=== PATIENT | male | born 1930 | race Caucasian/White ===

== ENCOUNTER 2016-08-25 14:44 | Emergency (ER) | payer OTHER, MEDICARE ==
[~2016-08-25] VITALS: Ht 182.8 cm; Wt 88.5 kg
[~2016-08-25 14:44] MED LIST: APRESOLINE25 MG PO; ASPI-COR81 M1 PO; DEBROX 15 ML15 M1 OT; FINASTERIDE5 MG PO; FOSINOPRIL SODI20 MG PO; FOSINOPRIL40 MG PO; HYDRALAZINE HCL25 MG PO; HYDROCHLOROTH12.5 MG PO; KETOCONAZOLE 1120 M1 TP; LANTUS100 U/ML SC; LEVOTHYROXINE0.05 MG PO; LOPRESSOR50 MG PO; METFORMIN500 MG; METOPROLOL SR50 MG PO; MICONAZOLE2% VG; MULTIVITAMIN1 CTB PO; NOVOLOG 701 UNIT/0.0; PEN-VEE K500 MG PO; TAMSULOSIN HYD0.4 MG PO; TYLENOL WITH CO1 TA1 PO; VITAMIN B121000 MC1 PO; VITAMIN B12500 MCG PO; VITAMIN C1000 M4 PO; VITAMIN C2000 MG PO; VITAMIN D1000 IU PO; VITAMIN D25000 IU PO; VITAMIN D32000 UNIT PO; ZOCOR20 MG PO; [UNRECOGNIZED DRUG - REMARK] OP
[2016-08-25 15:54] LABS: BASO % 0.3 % (0.0-1.0); EOS # 0.1 10*3/uL (0.0-0.4); HEMATOCRIT 36.9 % (42.0-52.0); HEMOGLOBIN 12.7 g/dl (14.0-18.0); LYMPH # 1.3 10*3/uL (1.3-4.4); LYMPH % 21.4 % (27.0-41.0); MEAN CELL VOLUME 94.6 fl (80.0-94.0); MEAN CORPUSCULAR HGB 32.6 pg (27.0-31.0); MEAN CORPUSCULAR HGB CONC 34.4 g/dl (33.0-37.0); MEAN PLATELET VOLUME 9.6 fl (9.6-12.3); MONO # 0.4 10*3/uL (0.1-1.0); MONO % 7.5 % (3.0-9.0); NEUT # 4.1 10*3/uL (2.3-7.9); NEUT % 69.6 % (47.0-73.0); PLATELET COUNT AUTOMATED 147 10*3/uL (130-400); RED CELL DISTRI WIDTH 12.4 % (0-14.5); WHITE BLOOD COUNT 5.9 10*3/uL (4.8-10.8)
[2016-08-25 16:06] LABS: BUN 15 mg/dl (7-24); CARBON DIOXIDE 30 mmol/L (21-32); CHLORIDE 100 mmol/L (98-107); EST GLOM FILT AFRICAN AMERICAN > 60 ml/min; GLUCOSE 178 mg/dL (65-99); POTASSIUM 4.4 mmol/L (3.5-5.1); SODIUM 137 mmol/L (136-145)
[2016-08-25 17:16] LABS: URINE AMPHETAMINES < 1000 (1000ng/ml); URINE BARBITURATES < 200 (200ng/ml); URINE COCAINE < 300 (300ng/ml)
[2016-08-25 17:21] LABS: BILIRUBIN NEGATIVE (NEGATIVE); BLOOD NEGATIVE (NEGATIVE); CLARITY CLEAR (CLEAR); COLOR YELLOW (YELLOW); GLUCOSE NEGATIVE (NEGATIVE); KETONE NEGATIVE (NEGATIVE); LEUKO ESTERASE NEGATIVE (NEGATIVE); NITRITE NEGATIVE (NEGATIVE); PROTEIN NEGATIVE (NEGATIVE); UROBILINOGEN 0.2 E.U./dl (0.2-1.0)
[2016-08-25 17:28] LABS: RBC 0-2 rbc/hpf (0-2); URINE REFLEX COMMENT NO (NO); WBC 0-2 wbc/hpf (0-5)
[2016-10-09] MEDS ORDERED: DONEPEZIL HYDRO10 M1 PO (14:37)
[2016-10-09] MEDS ORDERED: XALATAN 0.005%2.5 ML OU (14:38)
[2016-10-09] MEDS ORDERED: BUSPIRONE10 MG PO (14:38)
[2016-10-09] MEDS ORDERED: REFRESH 1 ML1 ML OU (18:25)
[2016-10-10] MEDS ORDERED: INVEGA3 MG PO (06:44)
== END 2016-08-25 18:06 | disposition home or self-care (01) ==
LOC: ED 14:44
PROVIDERS: Emergency Medicine
DX: R44.3 Hallucinations, unspecified (principal); I25.10 Atherosclerotic heart disease of native coronary artery without angina pectoris; E11.9 Type 2 diabetes mellitus without complications; I10 Essential (primary) hypertension; E03.9 Hypothyroidism, unspecified; E78.00 Pure hypercholesterolemia, unspecified; Z79.82 Long term (current) use of aspirin; Z79.4 Long term (current) use of insulin; Z90.49 Acquired absence of other specified parts of digestive tract

== ENCOUNTER 2016-11-13 11:25 | Inpatient (IN) | payer MEDICARE, OTHER ==
[~2016-11-13] VITALS: Ht 185.4 cm; Wt 91.9 kg
[2016-11-13] VITALS (8 sets, daily range): BP systolic 101–213; BP diastolic 48–97
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
[~2016-11-13 11:25] MED LIST changes: +BUSPIRONE10 MG PO; +DONEPEZIL HYDRO10 M1 PO; +INVEGA3 MG PO; +REFRESH 1 ML1 ML OU; +XALATAN 0.005%2.5 ML OU
[2016-11-13 11:51] LABS: BASO % 0.2 % (0.0-1.0); EOS % 0.5 % (1.0-4.0); HEMATOCRIT 34.7 % (42.0-52.0); HEMOGLOBIN 11.7 g/dl (14.0-18.0); LYMPH # 0.8 10*3/uL (1.3-4.4); MEAN CELL VOLUME 92.8 fl (80.0-94.0); MEAN CORPUSCULAR HGB 31.3 pg (27.0-31.0); MEAN CORPUSCULAR HGB CONC 33.7 g/dl (33.0-37.0); MEAN PLATELET VOLUME 9.6 fl (9.6-12.3); MONO # 0.4 10*3/uL (0.1-1.0); MONO % 7.1 % (3.0-9.0); NEUT # 4.6 10*3/uL (2.3-7.9); NEUT % 78.9 % (47.0-73.0); PLATELET COUNT AUTOMATED 139 10*3/uL (130-400); RED BLOOD COUNT 3.74 10*6/uL (4.50-5.90); RED CELL DISTRI WIDTH 12.2 % (0-14.5); WHITE BLOOD COUNT 5.8 10*3/uL (4.8-10.8)
[2016-11-13 12:06] LABS: ALBUMIN 3.3 gm/dl (3.1-4.5); ALKALINE PHOSPHATASE 56 U/L (45-117); BILIRUBIN, TOTAL 0.5 mg/dl (0.2-1.0); BUN 18 mg/dl (7-24); CARBON DIOXIDE 31 mmol/L (21-32); CHLORIDE 104 mmol/L (98-107); EST GLOM FILT AFRICAN AMERICAN > 60 ml/min; GLUCOSE 179 mg/dL (65-99); POTASSIUM 4.2 mmol/L (3.5-5.1); SGOT/AST 20 IU/L (3-35); SGPT/ALT 34 U/L (12-78); SODIUM 143 mmol/L (136-145)
[2016-11-13 12:35] LABS: BILIRUBIN NEGATIVE (NEGATIVE); BLOOD TRACE-INTACT (NEGATIVE); CLARITY CLOUDY (CLEAR); COLOR YELLOW (YELLOW); GLUCOSE NEGATIVE (NEGATIVE); KETONE NEGATIVE (NEGATIVE); LEUKO ESTERASE 2+ (NEGATIVE); NITRITE NEGATIVE (NEGATIVE); PROTEIN NEGATIVE (NEGATIVE); UROBILINOGEN 0.2 E.U./dl (0.2-1.0)
[2016-11-13] MEDS ORDERED: EXELON9.5 MG/24 TD (12:56)
[2016-11-13] MEDS ORDERED: NAMENDA XR28 M1 PO (12:56)
[2016-11-13] MEDS ORDERED: NAMENDA XR21 M1 PO (12:57)
[2016-11-13] MEDS ORDERED: NAMENDA XR14 M1 PO (12:57)
[2016-11-13] MEDS ORDERED: HALOPERIDOL IM (12:58)
[2016-11-13 12:59] LABS: BACTERIA 2+; URINE REFLEX COMMENT YES (NO); WBC TNTC wbc/hpf (0-5)
[2016-11-13] MEDS ORDERED: HALOPERIDOL1 MG PO (12:59)
[2016-11-13] MEDS ORDERED: Synthroid,Levo50 MCG PO (12:59)
[2016-11-13] MEDS ORDERED: PRINIVIL20 M1 PO (13:00)
[2016-11-13] MEDS ORDERED: ASPIRIN81 M1 PO (13:00)
[2016-11-13] MEDS ORDERED: ARTIFICIAL TEAR1512 OP (13:01)
[2016-11-13] MEDS ORDERED: LEVETIRACETAM500 MG PO (13:01)
[2016-11-13] MEDS ORDERED: NAMENDA XR7 M1 PO (15:20)
[2016-11-13] MEDS ORDERED: EXELON4.6 MG/24 TD (15:30)
[2016-11-13] MEDS ORDERED: LOPRESSOR50 M1 PO (15:31)
[2016-11-13] MEDS ORDERED: DAILY VALUE1 EACH PO (15:34)
[2016-11-13] MEDS ORDERED: RISPERDAL0.5 MG PO (15:35)
[2016-11-14 07:52] LABS: BASO % 0.4 % (0.0-1.0); EOS # 0.1 10*3/uL (0.0-0.4); EOS % 1.3 % (1.0-4.0); HEMATOCRIT 34.4 % (42.0-52.0); HEMOGLOBIN 11.5 g/dl (14.0-18.0); LYMPH # 1.1 10*3/uL (1.3-4.4); LYMPH % 21.3 % (27.0-41.0); MEAN CORPUSCULAR HGB 31.4 pg (27.0-31.0); MEAN CORPUSCULAR HGB CONC 33.4 g/dl (33.0-37.0); MONO # 0.4 10*3/uL (0.1-1.0); NEUT # 3.6 10*3/uL (2.3-7.9); NEUT % 68.8 % (47.0-73.0); PLATELET COUNT AUTOMATED 156 10*3/uL (130-400); RED BLOOD COUNT 3.66 10*6/uL (4.50-5.90); WHITE BLOOD COUNT 5.3 10*3/uL (4.8-10.8)
[2016-11-14 08:00] VITALS: BP 156/58
[2016-11-14 08:22] LABS: BUN 16 mg/dl (7-24); CARBON DIOXIDE 30 mmol/L (21-32); CHLORIDE 107 mmol/L (98-107); EST GLOM FILT AFRICAN AMERICAN > 60 ml/min; GLUCOSE 94 mg/dL (65-99); POTASSIUM 4.1 mmol/L (3.5-5.1); SODIUM 144 mmol/L (136-145)
[2016-11-14] MEDS ORDERED: EXELON13.3 MG/21 T (10:54)
== END 2016-11-14 12:46 | disposition home health service (06) | DRG 689 ==
LOC: ED 11:25 → EDHOLD 14:12 → 4E 14:38
PROVIDERS: Internal Medicine; Registered Nurse
DX: N39.0 Urinary tract infection, site not specified (principal); G93.41 Metabolic encephalopathy; G30.1 Alzheimer's disease with late onset; F02.81 Dementia in other diseases classified elsewhere, unspecified severity, with behavioral disturbance; E11.9 Type 2 diabetes mellitus without complications; F23 Brief psychotic disorder; E78.2 Mixed hyperlipidemia; I10 Essential (primary) hypertension; I25.10 Atherosclerotic heart disease of native coronary artery without angina pectoris; E03.9 Hypothyroidism, unspecified; Z79.82 Long term (current) use of aspirin; Z79.4 Long term (current) use of insulin; Z79.899 Other long term (current) drug therapy

== ENCOUNTER 2016-11-14 12:59 | Inpatient (IN) | payer MEDICARE, OTHER ==
[~2016-11-14] VITALS: Ht 185.4 cm; Wt 91.6 kg
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
--- NOTE | ~2016-11-14 | PR ---
[place], [place] [facility]GRESS NOTE [id number] UN[facility] #: [id number] ROOM: 311 DOCTOR: OLINDA DANIELSON MD BIRTHDATE: [birth year] DOS: 11/20/2016 CHIEF COMPLAINT: "Good morning." SUMMARY OF THE VISIT: The patient was interviewed in his bedroom as he was resting quietly in bed. He did engage quickly in conversation. He was bright and pleasant upon approach, very superficial, mostly appropriate comments, but at times he would respond in appropriately. There was, however, no agitation or aggression. There was no mood lability noted. He seems to be tolerating the current medications well without any apparent side effects. MENTAL STATUS: He is alert and oriented to person, possibly place, not time. Mood does seem to be strongly trending towards euthymia. Affect is much more appropriate. There are no symptoms suggestive of jo or hypomania. There are no auditory or visual hallucinations, delusions or paranoia. Short-term memory has gaps, otherwise he is intact. PLAN: I will renew his Ativan in case he requires it for later. Continue to engage in individual and newell milieu activity with the ultimate plan then to return to a long-term care facility when psychiatrically stable. OLINDA DANIELSON MD CM:PNTRANS 0818 OLINDA DANIELSON MD 11/20/1638 interface
--- NOTE | ~2016-11-14 | PR ---
[place], [place] PROGRESS NOTE [id number] UN[facility] #: [id number] ROOM: 311 DOCTOR: OLINDA DANIELSON MD BIRTHDATE: [birth year] DOS: 11/21/2016 CHIEF COMPLAINT: "Thank you for breakfast." SUMMARY OF THE VISIT: The patient was interviewed as he sat in the dining area ready to eat breakfast. He engaged readily in superficial conversation with me, voicing no complaints. He was pleasant upon approach. There was no overt agitation noted. MENTAL STATUS: He is alert and oriented to self, possibly place, but not time. Mood does seem to be strongly trending towards euthymia and affect is much more appropriate. There are no symptoms of hypomania or jo. Likewise, there are no overt auditory or visual hallucinations. No delusions, no paranoia. Short term memory is exceedingly poor, otherwise he is intact. PLAN: I will renew his Ativan in case he requires p.r.n. intervention later, maintain his current psychotropic regimen, continue to engage him in individual and newell milieu activity with the ultimate plan to return to [facility] when psychiatrically stable. OLINDA DANIELSON MD CM:PNTRANS 1 OLINDA DANIELSON MD 11/21/16 0940 interface
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
--- NOTE | ~2016-11-14 | PR ---
[place], [place] PROGRESS NOTE [id number] #: [id number] ROOM: 311 DOCTOR: OLINDA DANIELSON MD BIRTHDATE: [birth year] DOS: 11/19/2016 CHIEF COMPLAINT: "I had breakfast, thank you." SUMMARY OF THE VISIT: The patient was interviewed as he strolled in his wheelchair down the [place]. He stopped and engaged readily in conversation with me. He reports that he got up and had breakfast already and is feeling better. Overall, his mood does seem to be more pleasant. He was actually spontaneous with me this morning. There was no agitation or aggression and overall there has been a steady trend in improvement. MENTAL STATUS: He is alert and oriented to person, possibly place, but not time. Mood does seem to be strongly trending towards euthymia. Affect is much more appropriate. There are no symptoms suggestive of jo or hypomania. There are no auditory or visual hallucinations. No delusions, no paranoia. Memory has gaps, especially for time and short-term events. PLAN: I will renew his p.r.n. Ativan in case he needs it. We will maintain his current psychotropic regimen as there does seem to be benefit without side effects. Continue to engage him in individual and newell milieu activity with the plan then to return to a long-term care facility when psychiatrically stable. OLINDA DANIELSON MD CM:PNTRANS 0918 1021 OLINDA DANIELSON MD 11/19/16 1022 interface
--- NOTE | ~2016-11-14 | PR ---
[place], [place] PROGRESS NOTE [id number] #: [id number] ROOM: 311 DOCTOR: MACY CABRERA BIRTHDATE: [birth year] DOS: 11/16/2016 CHIEF COMPLAINT: "Good morning." SUMMARY OF VISIT: The patient was assessed in the dining room where he was eating breakfast. He states he is doing well. No voiced complaints. No complaints from nursing. MENTAL STATUS: He is alert and oriented to person, I think place, not time. Mood is euthymic. Affect is appropriate. Slow processing. Difficulty remembering things. There is no jo or hypomania. No overt signs of auditory or visual hallucinations. Poor short-term memory. PLAN: He was started on Depakote the other day and we are going to go ahead and check his valproic acid level tomorrow. That will give us a better idea if we need to adjust it still. He is on the maximum dose of Namenda and maxed out on the Exelon. So, we will see where his valproic acid level is tomorrow and continue to titrate as appropriate and discharge him back to [place] when stable. ANNITA CABRERA CNP CM:PNTRANS 105 MACY CABRERA 11/16/16 105 interface
[~2016-11-14 12:59] MED LIST changes: +ARTIFICIAL TEAR1512 OP; +ASPIRIN81 M1 PO; +DAILY VALUE1 EACH PO; +EXELON13.3 MG/21 T; +EXELON4.6 MG/24 TD; +EXELON9.5 MG/24 TD; +HALOPERIDOL IM; +HALOPERIDOL1 MG PO; +LEVETIRACETAM500 MG PO; +LOPRESSOR50 M1 PO; +NAMENDA XR14 M1 PO; +NAMENDA XR21 M1 PO; +NAMENDA XR28 M1 PO; +NAMENDA XR7 M1 PO; +PRINIVIL20 M1 PO; +RISPERDAL0.5 MG PO; +Synthroid,Levo50 MCG PO
[2016-11-14 14:30] VITALS: BP 155/74
[2016-11-14 20:35] VITALS: BP 127/60
[2016-11-15 08:00] VITALS: BP 172/84
[2016-11-15 20:53] VITALS: BP 140/80
[2016-11-16 07:46] VITALS: BP 130/68
[2016-11-16 19:32] VITALS: BP 146/57
[2016-11-17 07:11] VITALS: BP 119/56
[2016-11-17 20:27] VITALS: BP 142/62
[2016-11-18 06:59] VITALS: BP 82/46
[2016-11-18 08:19] VITALS: BP 100/52
[2016-11-18 11:45] VITALS: BP 146/64
[2016-11-18 16:32] VITALS: BP 155/74
[2016-11-18 19:58] VITALS: BP 147/58
[2016-11-19 08:30] VITALS: BP 106/54
[2016-11-19 08:54] VITALS: BP 130/82
[2016-11-19 20:00] VITALS: BP 162/74
[2016-11-19 22:00] VITALS: BP 146/54
[2016-11-20 08:00] VITALS: BP 150/80
[2016-11-20 20:00] VITALS: BP 148/52
[2016-11-21 07:46] VITALS: BP 122/53
[2016-11-21 19:53] VITALS: BP 150/90
[2016-11-22 08:00] VITALS: BP 118/60
[2016-11-22] MEDS ORDERED: MEMANTINE HCL10 MG PO (09:04)
[2016-11-22] MEDS ORDERED: EXELON13.3 MG/21 T (09:04)
[2016-11-22] MEDS ORDERED: DIVALPROEX SOD500 MG PO (09:11)
== END 2016-11-22 12:03 | disposition other institution (70) | DRG 57 ==
LOC: 3N 12:59
DX: G30.1 Alzheimer's disease with late onset (principal); F02.81 Dementia in other diseases classified elsewhere, unspecified severity, with behavioral disturbance; F23 Brief psychotic disorder; F63.81 Intermittent explosive disorder; I10 Essential (primary) hypertension; E03.9 Hypothyroidism, unspecified; F63.9 Impulse disorder, unspecified

== ENCOUNTER 2017-01-20 20:01 | Emergency (ER) | payer MEDICARE, OTHER ==
[~2017-01-20] VITALS: Ht 182.8 cm; Wt 88.5 kg
[~2017-01-20 20:01] MED LIST changes: +DIVALPROEX SOD500 MG PO; +MEMANTINE HCL10 MG PO
== END 2017-01-20 22:09 | disposition home or self-care (01) ==
LOC: ED 20:01
DX: Z00.8 Encounter for other general examination (principal); F03.90 Unspecified dementia, unspecified severity, without behavioral disturbance, psychotic disturbance, mood disturbance, and anxiety; I25.10 Atherosclerotic heart disease of native coronary artery without angina pectoris; E11.65 Type 2 diabetes mellitus with hyperglycemia; I10 Essential (primary) hypertension; E78.00 Pure hypercholesterolemia, unspecified; E03.9 Hypothyroidism, unspecified; Z79.4 Long term (current) use of insulin; Z79.899 Other long term (current) drug therapy; W18.31XA Fall on same level due to stepping on an object, initial encounter; Y93.89 Activity, other specified; Y92.9 Unspecified place or not applicable; Y99.9 Unspecified external cause status

== ENCOUNTER 2017-06-27 13:29 | Inpatient (IN) | payer MEDICARE, OTHER ==
[~2017-06-27] VITALS: Ht 185.4 cm; Wt 89.9 kg
--- NOTE | ~2017-06-27 | PR ---
[place], [place] PROGRESS NOTE NAME[id number] UN[facility] #: [id number] ROOM: 419 DOCTOR: ABAD JOHNSON MD BIRTHDATE: [birth year] DOS: 06/29/2017 SUBJECTIVE: The patient is awake, appears comfortable. No new complaints. OBJECTIVE: GENERAL APPEARANCE: Generalized weakness and mental confusion and the patient is a poor historian. VITAL SIGNS: Blood pressure 163/55, heart rate 62 beats per minute, breathing 18 times per minute, temperature 98.3 degrees Fahrenheit. HEENT AND NECK: Exam within normal limits. CARDIOVASCULAR SYSTEM: Heart rate is regular in rate and rhythm. S1 and S2 normally audible. LUNGS: Clear to auscultation. ABDOMEN: Soft, nontender. No obvious organomegaly. Bowel sounds are present. EXTREMITIES: Without significant cyanosis or edema. IMPRESSION: 1. Adult failure to thrive with generalized weakness. The patient going for senior living placement. The patient's is unable to take care of him. 2. Late onset of Alzheimer's type dementia. The patient is a poor historian, slow decline in general condition. 3. Benign essential hypertension with persistently elevated blood pressures. I will increase his Norvasc to 10 mg and metoprolol to twice a day instead of once a day and continue to monitor blood pressures. 4. Hypothyroidism, replace with supplements. 5. Type 2 diabetes mellitus. Blood sugars are reasonably controlled. 6. Coronary artery disease of [place] vessels without chest pains. ABAD JOHNSON MD CM:PNTRANS 1623 0926 ABAD JOHNSON MD 06/30/17 1155 interface
--- NOTE | ~2017-06-27 | WRIGHTHP ---
[place], [place] PATIENT HISTORY AND PHYSICAL EXAM NAME: OMID SMITH [facility] #: [id number] UNIT #: [id number] ROOM: 419 DOCTOR: ABAD JOHNSON MD BIRTHDATE: [birth year] DOS: 06/27/2017 HISTORY OF PRESENT ILLNESS: The patient is an 87-year-old gentleman with a past medical history of: 1. Late onset Alzheimer's type dementia and impulse control disorder. 2. Coronary artery disease of the [place] vessels. 3. Type 2 diabetes mellitus. 4. Benign essential hypertension. 5. History of hallucinations. 6. Mixed hyperlipidemia. 7. Hypothyroidism. 8. History of vertigo. The patient was brought to my office by his who was unable to take care of him anymore. The patient unable to support his weight and she is not strong enough to move him from chair to the bed or even moving in the bed and move his legs over. No chest pain. No shortness of breath. No GI or urinary symptoms. Just progressive weakness and decline in his ability to move around and activities of daily living. The patient's has been taking care of him for many years now. HOME MEDICATIONS: Memantine, Depakote, rivastigmine, Levemir, lisinopril, aspirin, metoprolol, levothyroxine, Keppra, latanoprost, Haldol. FAMILY HISTORY: Noncontributory. ALLERGIES: No known drug allergies. PHYSICAL EXAMINATION: GENERAL: Alert, oriented to name and place, in no visible distress, poor historian and generalized weakness and inability to ambulate. VITAL SIGNS: Blood pressure 160/80, heart rate of 58 beats per minute, breathing 18 times per minute, temperature 98 degrees Fahrenheit. HEENT AND NECK: Extraocular movements are intact. Sclerae are anicteric. Oral mucosa is moist and clean. No obvious facial weakness. Neck is supple without any lymphadenopathy. No thyromegaly. No JVD. No carotid arterial bruits. LUNGS: Clear to auscultation. No wheezing. No rhonchi. CARDIOVASCULAR SYSTEM: Heart rate is regular in rate and rhythm. S1 and S2 normally audible. No significant murmur or any other abnormal cardiac sounds. ABDOMEN: Soft, nontender. No obvious organomegaly. Bowel sounds are present. No obvious herniation. EXTREMITIES: Without significant cyanosis or edema. Warm to touch. CENTRAL NERVOUS SYSTEM: Alert and oriented x 3. Cranial nerves II-XII are intact. Speech is normal. The patient is able to move all extremities. Normal muscle strength. Deep tendon reflexes are equal on both sides. Plantars were downgoing. LABORATORY DATA: Chest x-ray without acute abnormality. Normal basic metabolic profile normal, except for blood sugar 134. Hemoglobin 12.5 with normal CBC, platelets are slightly low at 103,000. Urinalysis is showing no signs of [place], [place] PATIENT HISTORY AND PHYSICAL EXAM NAME: OMID SMITH UNIT #: [id number] ROOM: 419 DOCTOR: ABAD JOHNSON MD BIRTHDATE: [birth year] infection. IMPRESSION AND PLAN: 1. Late onset of Alzheimer's type dementia. The patient is a poor historian. 2. Advance adult failure to thrive and inability to ambulate. The patient's is unable to take care of him at home. He requires placement to the f[facility], for which he needs a 3-day stay at the hospital. 3. Benign essential hypertension with somewhat elevated blood pressures. I will increase his metoprolol and add Norvasc to the treatment. 4. Type 2 diabetes mellitus, diet controlled. Blood sugars appear reasonably controlled at the present time. 5. Hypothyroidism, treated with thyroid supplements. I will check free T4 and TSH levels. Presently, he is not taking his thyroid. 6. Mixed hyperlipidemia, controlled. 7. Coronary artery disease of [place] vessels, without chest pains. ABAD JOHNSON MD CM:HISPHYS:PATIENT HISTORY AND PHYSICAL EXAMINATION 1018 1130 ABAD JOHNSON MD 06/28/17 1128 interface
--- NOTE | ~2017-06-27 | DS ---
[place], [place] DISCHARGE SUMMARY NAME: OMID SMITH UNIT #: [id number] ROOM: 419 DOCTOR: ABAD JOHNSON MD BIRTHDATE: [birth year] DOS: 06/30/2017 DISCHARGE DIAGNOSES: 1. Late-onset Alzheimer's type dementia. 2. Decline in health status and mental status. 3. Adult failure to thrive with generalized weakness. 4. Benign essential hypertension. 5. Hypothyroidism. 6. Type 2 diabetes mellitus. 7. Coronary artery disease of the [place] vessels. 8. Mixed hyperlipidemia. 9. History of chronic vertigo. 10. Type 2 diabetes mellitus. HOSPITAL COURSE: 1. The patient was admitted to [facility] for placement to half-way because of progressively patient getting weaker. The patient's was unable to take care of him. During his hospital stay, patient became even more lethargic. Today, he does wake up and eat a little bit, but otherwise, he is mostly unresponsive. Arrangements have been made to send him to the half-way with a DNR comfort care code status. The patient's prognosis is poor because of his declining health status. A CT of the head was performed again today, which showed no acute abnormality. There are no signs of acute infection or any other issues. Blood counts and serum electrolytes were normal. 2. Progressive late onset Alzheimer's type dementia and advanced disability. The patient is heading to the half-way today. 3. Type 2 diabetes mellitus. Blood sugars to be monitored and treated. 4. Benign essential hypertension. Blood pressure was evaluated so added Norvasc to the treatment and his blood pressures have normalized now. 5. Advanced adult failure to thrive and decline in health status. This was discussed with the patient's and daughter in good detail. LABORATORY DATA: CT of the head without contrast normal. CBC and serum electrolytes were normal. Chest x-ray without any acute abnormality. DISCHARGE MANAGEMENT: Amlodipine 10 mg a day, metoprolol 50 mg b.i.d., rivastigmine 13.3 mg daily, memantine 10 mg b.i.d. No concentrated sweet diet. [place], [place] DISCHARGE SUMMARY NAME: OMID SMITH UNIT #: [id number] ROOM: 419 DOCTOR: ABAD JOHNSON MD BIRTHDATE: [birth year] ABAD JOHNSON MD CM:MURALI [id number] ABAD JOHNSON MD 06/30/17 2333 interface
[~2017-06-27 13:29] MED LIST changes: +LANTUS SOL100 UNIT/1 SQ
[2017-06-27 14:00] VITALS: BP 176/64
--- NOTE | 2017-06-27 14:00 | NUR ---
PATEINT ARRIVED VIA WHEEL CHAIR FROM ADMITTING WITH & DAUGHTER HERE. ASSESSMENT DONE. RT KNEE SKIN TEAR PER FAMILY FROM FALL AT HOME UNWITNESSED. PICTURE TAKEN & DRESSING APPLIED WITH VERSATEL/HYDROGEL/OPTIFOAM AFTER CLEANSED & SKIN PREP APPLIED. SKIN DRY BUT NO TENTING. HEELS INTACT & ETHAN. VERY WEAK & REQUIRED 2 ASSIST TO THE BED. MED LIST UPDATED WITH & DTG FROM LIST THAT SHE CARRIES.
[2017-06-27] MEDS ORDERED: NAMENDA10 MG PO (14:38)
[2017-06-27] MEDS ORDERED: DEPAKOTE500 M1 PO (14:44)
[2017-06-27] MEDS ORDERED: EXEL13.31 TD (14:45)
[2017-06-27] MEDS ORDERED: VITAMIN D34000 UNIT PO (14:47)
[2017-06-27 16:00] VITALS: BP 160/86; BP 170/60
--- NOTE | 2017-06-27 16:33 | NUR ---
DR JOHNSON CALLED AND HE WILL PUT IN ALL THE ORDERS WHEN HE GETS HERE - THE PATIENT IS ONLY HERE FOR HALF-WAY PLACEMENT. INFORMED THAT HE IS TO BE A DNRCC PER FAMILY & PREVIOUS RECORDS.
--- NOTE | 2017-06-27 17:47 | NUR ---
DR JOHNSON HERE - WOUND ORDERS PLACED.
--- NOTE | 2017-06-27 18:38 | NUR ---
THE URINE SPECIMEN WAS LOST IN THE TUBE SYSTEM. PER THE LAB THEY NEVER RECEIVED IT. MULTIPLE DEPARTMENTS CALLED AND UNABLE TO FIND IT.
[2017-06-28] VITALS: BP 172/74
[2017-06-28 06:36] LABS: BILIRUBIN NEGATIVE (NEGATIVE); BLOOD TRACE-LYSED (NEGATIVE); CLARITY CLEAR (CLEAR); COLOR YELLOW (YELLOW); GLUCOSE TRACE (NEGATIVE); KETONE NEGATIVE (NEGATIVE); LEUKO ESTERASE NEGATIVE (NEGATIVE); NITRITE NEGATIVE (NEGATIVE); SPECIFIC GRAVITY <= 1.005 (1.005-1.030); UROBILINOGEN 0.2 E.U./dl (0.2-1.0)
[2017-06-28 06:43] LABS: EPITHELIAL CELLS 0-2; WBC 0-2 wbc/hpf (0-5)
[2017-06-28 06:58] LABS: BASO % 0.6 % (0.0-1.0); EOS # 0.1 10*3/uL (0.0-0.4); HEMOGLOBIN 12.7 g/dl (14.0-18.0); LYMPH # 1.6 10*3/uL (1.3-4.4); LYMPH % 30.9 % (27.0-41.0); MEAN CELL VOLUME 93.9 fl (80.0-94.0); MEAN CORPUSCULAR HGB 32.2 pg (27.0-31.0); MEAN CORPUSCULAR HGB CONC 34.3 g/dl (33.0-37.0); MEAN PLATELET VOLUME 9.6 fl (9.6-12.3); MONO # 0.5 10*3/uL (0.1-1.0); MONO % 9.7 % (3.0-9.0); NEUT # 2.9 10*3/uL (2.3-7.9); NEUT % 56.4 % (47.0-73.0); PLATELET COUNT AUTOMATED 103 10*3/uL (130-400); RED BLOOD COUNT 3.94 10*6/uL (4.50-5.90); RED CELL DISTRI WIDTH 12.4 % (0-14.5); WHITE BLOOD COUNT 5.1 10*3/uL (4.8-10.8)
--- NOTE | 2017-06-28 07:26 | NUR ---
PT BACK FROM X-RAY AT THIS TIME.
[2017-06-28 07:29] LABS: BUN 14 mg/dl (7-24); CHLORIDE 99 mmol/L (98-107); CREATININE 1.14 mg/dL (0.70-1.30); POTASSIUM 3.9 mmol/L (3.5-5.1); SODIUM 140 mmol/L (136-145)
[2017-06-28 08:00] VITALS: BP 160/80
--- NOTE | 2017-06-28 08:00 | NUR ---
PT UP IN BED EATING BREAKFAST, PT DENIES ANY COMPLAINTS, PT ORIENTED X2 AND PLEASANT. BED MAINTAINED IN LOW POSITION, REINFORCED CALL LIGHT USE. BED ALARM ON.
--- NOTE | 2017-06-28 08:14 | NUR ---
[facility]
--- NOTE | 2017-06-28 09:09 | NUR ---
OMID SMITH [id number] Please refer to the physician's history and physical for past medical history, comorbid conditions, and allergies. Diagnosis: ALTERED MENTAL STATUS UNABLE TO AMBULATE [place] Score: 15,AT RISK WOUND DESCRIPTIONS: Location of the wound: right knee Type of wound: skin tear Thickness: Partial Size: 1.6cm x 1.8cm x 0.1cm Tunneling: none Undermining: none Sinus Tract: none Presence of Exudate: Serosanguineous Amount: Light Color: Red Odor: None Periwound Skin Appearance: Normal Wound edges: approximated Pain (associated with wound): none at time of assessment How does patient state this happened? pt stated he fell down and thats how it occurs he thinks. Surface the patient is resting on: Position Pro SKIN PREVENTION RECOMMENDATION: 1. Pressure redistribution support surface as appropriate 2. Elevate heels 3. Remove boots/TEDS every shift and reapply 4. Head of bed 30 degrees as tolerated 5. Assess nutrition and hydration 6. Manage moisture 7. Avoid the use of containment devices while in bed 8. Use absorptive products on surfaces limit layers of linens on bed 9. Turn and reposition every 1-2 hours in bed and every 1 hour in chair as tolerated 10. Weight shifts every 15 minutes while up in chair 11. Offloading with pillows or device to keep heels elevated off bed 12. Monitor skin at least every shift 13. Inspect under medical devices twice a day WOUND TREATMENT RECOMMENDATIONS: Continue current treatments as orders per md.
--- NOTE | 2017-06-28 11:33 | NUR ---
PHYSICAL THERAPY PAtient on commode for long duration of time this am. Will attempt late this afternoon. Thank you for this referral. Marielos Miguel,PT
--- NOTE | 2017-06-28 13:43 | NUR ---
PHYSICAL THERAPY PAtient evaluated on 4, full evaluation to follow. Continue with PT as per plan of care with fall, mod (A) and alarms precautions. Significant decline in mobility status- will require SNF. PAtient is moderate complexity via chart review, tests and evaluation : 52355. Thank you for this referral. Marielos Siu,PT
--- NOTE | 2017-06-28 13:59 | NUR ---
MERY faxed referral to [facility] and sent message to [facility] to notify of referral.
--- NOTE | 2017-06-28 15:38 | NUR ---
DR JOHNSON NOTIFIED OF BP 180/62. STATES TO ADD NORVASC 5MG DAILY.
[2017-06-28 16:00] VITALS: BP 180/62
[2017-06-28 17:30] VITALS: BP 164/84
--- NOTE | 2017-06-28 18:00 | NUR ---
PT UP IN CHAIR, AT BEDSIDE. NO DISTRESS NOTED.
[2017-06-29] VITALS: BP 180/71
--- NOTE | 2017-06-29 02:30 | NUR ---
PATIENT RESTING IN BED WITH EYES CLOSED. RESPS EASY AND REGULAR. BED IN LOWES TPOSITION, CALL LIGHT IN REACH
--- NOTE | 2017-06-29 07:59 | NUR ---
OOB TO CHAIR, BODY ALARM IN USE FOR PT SAFETY. SEE SHIFT ASSESSMENT.
[2017-06-29 08:00] VITALS: BP 173/71
--- NOTE | 2017-06-29 09:38 | NUR ---
PHYSICAL THERAPY Patient seen this am 1:1 for therapy supine in bed and reports feeling a bit tired, with increased global joint stiffness. Patient needed a little encouragement to actively participate this morning and agreed to transfer sup to sit EOB, Mod A x 1. Patient tolerated EOB sit x 4 minutes to collect himself and transfered sit to stand, FIREFIGHTER MARINE/Mod A, completing SPT to bedside chair, FIREFIGHTER MARINE/ Min A, demonstrating shuffling step pattern. Patient also performed seated, B LE therex, all planes x 10 reps each, with v/c to complete task. Patient remained in bedside chair following treatment with body alarm for safety, telephone and tray table as breakfast just arrived. Will continue per POC as tolerate to improve functional mobility. Phan Rowe, MATH TEACHER
[2017-06-29 12:00] VITALS: BP 173/89
--- NOTE | 2017-06-29 14:59 | NUR ---
RESTING WITH AT BEDSIDE. NO OBVIOUS CHANGES NOTED THIS SHIFT.
[2017-06-29 15:04] VITALS: BP 168/68
--- NOTE | 2017-06-29 15:37 | NUR ---
Shift chart check completed.24 HR chart check completed.
[2017-06-29 16:00] VITALS: BP 163/55
--- NOTE | 2017-06-29 17:53 | NUR ---
HAS BEEN ASSISTED TO CHAIR WITH MODERATE ASSIST OF TWO. HE'S COOPERATIVE. HIS FEEDING HIM.
--- NOTE | 2017-06-29 20:00 | NUR ---
LAB RESULTS AND ORDERS REVIEWED
[2017-06-30] VITALS: BP 187/67
--- NOTE | 2017-06-30 07:08 | NUR ---
Patient accepted to [facility] and can go today 06/30/17
[2017-06-30 08:00] VITALS: BP 160/94
--- NOTE | 2017-06-30 08:00 | NUR ---
IN BED AWAKE ALERT AND CONFUSED. DOES FOLLOW SOME COMMANDS. SEE ASSESS. NO S/S OF DISTRESS. WILL CONT TO MONITOR. CALL LIGHT IN REACH. BED ALARM ON AND FUNCTIONING.
--- NOTE | 2017-06-30 13:26 | NUR ---
PHYSICAL THERAPY Khoa seen this AM 1:1 for his therapy sunny and was sleeping sound, did not arouse will stop back. ALLI ROSS EMPLOYEE BENEFITS ADMINISTRATOR.
--- NOTE | 2017-06-30 13:27 | NUR ---
PHYSICAL THERAPY Back this PM to treat Pt for his therapy session, Pt supine in bed. With much verbal cueing transfer supine/sit MAX A X 1, once up in sitting MOD, to MIN AT RISK PARAPROFESSIONAL X 1. Working on sitting balance with cues to rock and to leaning right to left with cues and MOD A X 1, X 7 min. Then sit to stand needing much cueing MAX A X 1, for standing balance MAX A, followed by pivot into bedside chair MAX A X 1. Pt having body alarm on, call light. ALLI ROSS MANAGER DRUG SAFETY.
--- NOTE | 2017-06-30 14:15 | NUR ---
DISCHARGED AT THIS TIME. IV REMOVED AND PRESSURE DRESSING APPLIED. VERBALIZED UNDERSTANDING OF DISCHARGE INSTRUCTIONS. SCRIPTS GIVEN TO PT.
--- NOTE | 2017-06-30 14:18 | NUR ---
PT DROWSY. ASSISTED BACK TO BED FROM RECLINER. DR JOHNSON NOTIFIED OF PT CHANGE IN MENTAL STATUS SINCE ADMISSION. NEW ORDERS RECEIVED.
[2017-06-30 14:59] LABS: BASO % 0.3 % (0.0-1.0); EOS % 0.3 % (1.0-4.0); HEMATOCRIT 40.2 % (42.0-52.0); HEMOGLOBIN 14.3 g/dl (14.0-18.0); LYMPH # 1.1 10*3/uL (1.3-4.4); LYMPH % 14.2 % (27.0-41.0); MEAN CELL VOLUME 93.3 fl (80.0-94.0); MEAN CORPUSCULAR HGB 33.2 pg (27.0-31.0); MEAN CORPUSCULAR HGB CONC 35.6 g/dl (33.0-37.0); MEAN PLATELET VOLUME 9.4 fl (9.6-12.3); MONO # 0.8 10*3/uL (0.1-1.0); MONO % 10.4 % (3.0-9.0); NEUT # 5.5 10*3/uL (2.3-7.9); NEUT % 74.4 % (47.0-73.0); PLATELET COUNT AUTOMATED 134 10*3/uL (130-400); RED BLOOD COUNT 4.31 10*6/uL (4.50-5.90); RED CELL DISTRI WIDTH 12.4 % (0-14.5); WHITE BLOOD COUNT 7.4 10*3/uL (4.8-10.8)
[2017-06-30 15:25] LABS: ALBUMIN 3.7 gm/dl (3.1-4.5); ALKALINE PHOSPHATASE 64 U/L (45-117); BUN 16 mg/dl (7-24); CHLORIDE 99 mmol/L (98-107); CREATININE 1.23 mg/dL (0.70-1.30); POTASSIUM 3.6 mmol/L (3.5-5.1); SGOT/AST 22 IU/L (3-35); SGPT/ALT 19 U/L (12-78); SODIUM 137 mmol/L (136-145); TOTAL PROTEIN 7.5 gm/dL (6.4-8.2)
[2017-06-30 16:00] VITALS: BP 115/85
[2017-06-30] MEDS ORDERED: AMLODIPINE BESYL5 MG PO (17:47)
--- NOTE | 2017-06-30 18:06 | NUR ---
REPORT CALLED TO [facility]. FAMILY HERE AND SPOKE TO DR JHONSON.
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
--- NOTE | 2017-06-30 18:49 | NUR ---
PT DISCHARGED AT THIS TIME TO [facility] VIA [facility]. IV REMOVED AND PRESSURE DRESSING APPLIED. DISCHARGE PHOTOS TAKEN OF RIGHT KNEE.
--- NOTE | 2017-07-03 07:15 | NUR ---
PHYSICAL THERAPY CO-SIGN I approve of the Phyical Therapy notes written above. ANGLE BLOCK PT
== END 2017-06-30 18:49 | disposition other institution (70) | DRG 56 ==
LOC: LAB 13:29 → EDSTATUS 13:29 → 4E 13:29
PROVIDERS: ADMIT Internal Medicine
DX: G30.1 Alzheimer's disease with late onset (principal); R53.2 Functional quadriplegia; F02.80 Dementia in other diseases classified elsewhere, unspecified severity, without behavioral disturbance, psychotic disturbance, mood disturbance, and anxiety; E11.9 Type 2 diabetes mellitus without complications; R62.7 Adult failure to thrive; I25.10 Atherosclerotic heart disease of native coronary artery without angina pectoris; E78.2 Mixed hyperlipidemia; E03.9 Hypothyroidism, unspecified; I10 Essential (primary) hypertension; Z66 Do not resuscitate; Z51.5 Encounter for palliative care

== ENCOUNTER 2017-07-26 10:46 | Inpatient (IN) | payer MEDICARE, OTHER ==
[~2017-07-26] VITALS: Ht 185.4 cm; Wt 85.8 kg
--- NOTE | ~2017-07-26 | DS ---
[place], [place] DISCHARGE SUMMARY NAME: OMID SMITH UNIT #: [id number] ROOM: 506 DOCTOR: ABAD JOHNSON MD BIRTHDATE: [birth year] DOS: 07/30/2017 DISCHARGE DIAGNOSES: 1. Late onset Alzheimer's type dementia, advanced. 2. Adult failure to thrive. The patient's unable to take care of him at home. 3. Type 2 diabetes mellitus. 4. Coronary artery disease of the [place] vessels. 5. Benign essential hypertension. 6. Mixed hyperlipidemia. 7. Hypothyroidism. 8. Type 2 diabetes mellitus. 9. Mixed hyperlipidemia. 10. Chronic vertigo. HOSPITAL COURSE: The patient has advanced adult failure to thrive and declining health with his unable to take care of him at home anymore, was brought back to the hospital and condition is stabilized and social service worker arranged for him to go back to the correction. The patient requires long-term correction placement, which has been discussed with his family in the past. Type 2 diabetes mellitus. Blood sugars are monitored and controlled and treated. The patient remains on no concentrated sweet diet. Advanced late onset Alzheimer's type dementia and advanced adult failure to thrive. Hypothyroidism, replaced with thyroid supplements. Benign essential hypertension treated and controlled. Coronary artery disease of [place] vessels without chest pain. Mixed hyperlipidemia, diet controlled. LABORATORY DATA: Blood cultures were negative. Urine cultures were negative. No leukocytosis. Hemoglobin 11 and stable. Normal serum electrolytes, BUN and creatinine. DISCHARGE MANAGEMENT: Rivastigmine 13.3 mg daily patch, Levemir insulin 10 units subQ daily, no concentrated sweet diet, metoprolol 50 mg a day, lisinopril 20 mg a day, amlodipine 10 mg a day, memantine 10 mg b.i.d., levothyroxine 50 mcg daily, Depakote long acting 250 mg b.i.d., aspirin 81 mg a day, latanoprost 1 drop to affected eye at bedtime, saline eye drops each eye q.i.d. [place], [place] DISCHARGE SUMMARY NAME: OMID SMITH UNIT #: [id number] ROOM: 506 DOCTOR: ABAD JOHNSON MD BIRTHDATE: [birth year] ABAD JOHNSON MD CM:MURALI [id number] ABAD JOHNSON MD 07/30/171726 interface
--- NOTE | ~2017-07-26 | PR ---
[place], [place] PROGRESS NOTE NAME: OMID SMITH UNIT #: [id number] ROOM: 506 DOCTOR: ABAD JOHNSON MD BIRTHDATE: [birth year] DOS: 07/29/2017 SUBJECTIVE: The patient is slightly awake, unable to communicate. OBJECTIVE: GENERAL APPEARANCE: Generalized weakness and mental confusion. VITAL SIGNS: Blood pressure 157/48, heart rate 58 beats per minute, breathing 17 times per minute, temperature 98.2 degrees Fahrenheit. HEENT AND NECK: Exam within normal limits. CARDIOVASCULAR SYSTEM: Heart rate is regular in rate and rhythm. S1 and S2 normally audible. LUNGS: Clear to auscultation. ABDOMEN: Soft, nontender. No obvious organomegaly. Bowel sounds are present. EXTREMITIES: Without significant cyanosis or edema. IMPRESSION: 1. The patient has advance adult failure to thrive, waiting for [facility] placement. 2. Late onset Alzheimer's type dementia, advanced disability, adult failure to thrive and mental confusion. The patient was taken care of at home by his , but she is unable to take care of him anymore. 3. Type 2 diabetes mellitus. Blood sugars being monitored and treated. 4. Coronary artery disease of [place] vessels without chest pain. 5. Benign essential hypertension, treated and controlled. 6. Mixed hyperlipidemia, followed and treated. ABAD JOHNSON MD CM:PNTRANS [id number] ABAD JOHNSON MD 07/30/17 1100 interface
--- NOTE | ~2017-07-26 | PR ---
[place], [place] PROGRESS NOTE [id number] UNIT #: [id number] ROOM: 506 DOCTOR: ALBINA ANNE MD BIRTHDATE: [birth year] DOS: 07/28/2017 SUBJECTIVE: The patient is resting comfortably. Staff was feeding him this morning, did not appear to be in any distress. PHYSICAL EXAMINATION: VITAL SIGNS: Blood pressure is 158/64, pulse of 69, respirations 18, temperature 97.8. LUNGS: Diminished breath sounds. No wheezes, rales or rhonchi heard. HEART: Regular. ABDOMEN: Obese, soft, nontender. EXTREMITIES: Without any edema. LABORATORY DATA: Glucose 205, BUN 21, creatinine 1.20, sodium 135, potassium 3.8, chloride 98, bicarbonate 30. Urine culture shows no bacterial growth. ASSESSMENT AND PLAN: 1. Adult failure to thrive. The patient is here for possibility of placement. 2. Type 2 diabetes mellitus, insulin-dependent, fairly controlled. I will not increase any medications any further. 3. Alzheimer's dementia, late onset, already on medications. ALBINA ANNE MD CM:PNTRANS [id number] ALBINA ANNE MD 07/28/17 1322 interface
--- NOTE | ~2017-07-26 | WRIGHTHP ---
[place], [place] PATIENT HISTORY AND PHYSICAL EXAM NAME: OMID SMITH [facility] #: [id number] UNIT #: [id number] ROOM: 505 DOCTOR: ABAD JOHNSON MD BIRTHDATE: [birth year] DOS: 07/26/2017 HISTORY OF PRESENT ILLNESS: The patient is an 87-year-old gentleman with a past medical history of: 1. Late onset Alzheimer's type dementia, confusion with agitation. 2. Adult failure to thrive with the patient living at home and unable to take care of him anymore because of the decline in health status and mental status. 3. Benign essential hypertension. 4. Hypothyroidism,. 5. Type 2 diabetes mellitus. 6. Coronary artery disease of [place] vessels. 7. Mixed hyperlipidemia. 8. Chronic vertigo history. The patient presented to the Emergency Department at [facility], brought over by his after she took him home from nursing home facility and was unable to take care of him anymore. The patient was seen by physical therapist at home and was unable to move because of generalized weakness and the patient was quite confused and doing poorly at home. The patient was recommended for admission for elevated blood pressure, generalized weakness and adult failure to thrive. After admission, the patient was unable to communicate, is not making any eye contact. There are no recent complaints of chest pains or shortness of breath or any other GI or urinary symptoms. REVIEW OF SYSTEMS: LUNGS: No increasing shortness of breath or wheezing. GASTROINTESTINAL: No nausea, vomiting, diarrhea or constipation. CARDIOVASCULAR: No chest pain or palpitations. FAMILY HISTORY: Noncontributory. HOME MEDICATIONS: Rivastigmine, insulin, metoprolol, lisinopril, memantine, levothyroxine, Depakote, aspirin, latanoprost eyedrops, artificial tear eyedrops. ALLERGIES: No known drug allergies. PHYSICAL EXAMINATION: GENERAL: The patient appears tired and lethargic, does not make eye contact, unable to communicate, in no visible distress, but generalized weakness. VITAL SIGNS: Blood pressure 143/60, heart rate 68 beats per minute, breathing 20 times per minute, temperature 98 degrees Fahrenheit. HEENT AND NECK: Extraocular movements are intact. Sclerae are anicteric. Oral mucosa is moist and clean. No obvious facial weakness. Neck is supple without any lymphadenopathy. No thyromegaly. No JVD. No carotid arterial bruits. LUNGS: Clear to auscultation. No wheezing. No rhonchi. CARDIOVASCULAR SYSTEM: Heart rate is regular in rate and rhythm. S1 and S2 normally audible. No significant murmur or any other abnormal cardiac sounds. ABDOMEN: Soft, nontender. No obvious organomegaly. Bowel sounds are present. [place], [place] PATIENT HISTORY AND PHYSICAL EXAM NAME: OMID SMITH UNIT #: [id number] ROOM: [facility] DOCTOR: ABAD JOHNSON MD BIRTHDATE: [birth year] No obvious herniation. EXTREMITIES: Without significant cyanosis or edema. Warm to touch. CENTRAL NERVOUS SYSTEM: Alert and oriented x 3. Cranial nerves II-XII are intact. Speech is normal. The patient is able to move all extremities. Normal muscle strength. Deep tendon reflexes are equal on both sides. Plantars were downgoing. LABORATORY DATA: Normal serum electrolytes. Blood sugar of 200. Hemoglobin 11.1, normal platelets. Urine without any signs of infection. Chest x-ray without any acute abnormality. IMPRESSION: 1. The patient with severe adult failure to thrive and requires half-way placement for longterm. This has been discussed with the patient's in the past who generally takes care of him at home. The patient's took him home from nursing home facility not realizing that she will be unable to take care of him at home because of his declining health condition. I recommend a DNR/comfort care code status. 2. Late onset Alzheimer's type dementia with periods of agitation, treated and controlled. 3. Anemia of chronic disease with hemoglobin 11.1. 4. Hypothyroidism, treated with thyroid supplements. 5. Type 2 diabetes mellitus, blood sugar is to be monitored and treated and the patient to be kept on a no concentrated sweet diet. 6. Coronary artery disease of the [place] vessels, without chest pains. 7. Mixed hyperlipidemia, treated and controlled. 8. financial services officer have been consulted to help with placement at the half-way. ABAD JOHNSON MD CM:HISPHYS:PATIENT HISTORY AND PHYSICAL EXAMINATION [id number] ABAD JOHNSON MD 07/27/172120 interface
[2017-07-26 10:46] VITALS: BP 147/58
[~2017-07-26 10:46] MED LIST changes: +AMLODIPINE BESYL5 MG PO; +Depakote250 MG PO; +EXEL13.31 TD; +NAMENDA10 MG PO; +VITAMIN D34000 UNIT PO
[2017-07-26 11:14] LABS: BASO % 0.4 % (0.0-1.0); EOS % 0.4 % (1.0-4.0); HEMATOCRIT 31.7 % (42.0-52.0); HEMOGLOBIN 10.6 g/dl (14.0-18.0); LYMPH # 0.9 10*3/uL (1.3-4.4); MEAN CELL VOLUME 95.2 fl (80.0-94.0); MEAN CORPUSCULAR HGB 31.8 pg (27.0-31.0); MEAN CORPUSCULAR HGB CONC 33.4 g/dl (33.0-37.0); MEAN PLATELET VOLUME 9.5 fl (9.6-12.3); MONO # 0.9 10*3/uL (0.1-1.0); MONO % 16.1 % (3.0-9.0); NEUT # 3.8 10*3/uL (2.3-7.9); NEUT % 66.7 % (47.0-73.0); PLATELET COUNT AUTOMATED 126 10*3/uL (130-400); RED BLOOD COUNT 3.33 10*6/uL (4.50-5.90); RED CELL DISTRI WIDTH 12.1 % (0-14.5); WHITE BLOOD COUNT 5.6 10*3/uL (4.8-10.8)
[2017-07-26 11:35] LABS: ALBUMIN 2.9 gm/dl (3.1-4.5); ALKALINE PHOSPHATASE 62 U/L (45-117); BUN 16 mg/dl (7-24); CHLORIDE 100 mmol/L (98-107); CREATININE 1.28 mg/dL (0.70-1.30); SGOT/AST 11 IU/L (3-35); SGPT/ALT 15 U/L (12-78); SODIUM 138 mmol/L (136-145); TOTAL PROTEIN 7.2 gm/dL (6.4-8.2)
[2017-07-26 11:35] LABS: BILIRUBIN NEGATIVE (NEGATIVE); BLOOD 2+ (NEGATIVE); CLARITY CLOUDY (CLEAR); COLOR YELLOW (YELLOW); GLUCOSE TRACE (NEGATIVE); KETONE NEGATIVE (NEGATIVE); NITRITE NEGATIVE (NEGATIVE); PH 8.5 (5.0-9.0)
[2017-07-26 11:36] LABS: ACT PARTIAL THROMBO TIME 26.4 SECONDS (20.8-31.5)
[2017-07-26 11:40] LABS: LEUKO ESTERASE NEGATIVE (NEGATIVE)
[2017-07-26 11:45] LABS: BACTERIA TRACE; RBC 41-50 rbc/hpf (0-2)
[2017-07-26 12:00] VITALS: BP 137/79
--- NOTE | 2017-07-26 13:10 | NUR ---
Time: 0 A 87 year old MALE admitted to 5E under services of DR. ELIZABETH NICHOLSON,ABAD Gomez Pt. arrived via stretcher from ER. Chief complaint: ELEVATED BP, UNABLE TO CARE FOR AT HOME. VICKY RAMIREZ
[2017-07-26 13:30] VITALS: BP 163/76
--- NOTE | 2017-07-26 14:30 | NUR ---
DR JOHNSON NOTIFIED THAT PT HAS BEEN ADMITTED AND MED REC IS UP TO DATE.
[2017-07-26 16:00] VITALS: BP 164/66
[2017-07-26 20:00] VITALS: BP 190/76
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
[2017-07-27] VITALS: BP 159/78
--- NOTE | 2017-07-27 07:39 | NUR ---
PATIENT RESTING IN BED. PATIENT WAS LETHARGIC AND SLIGHTLY CONFUSED UPON ASSESSMENT. PATIENT IS AWAKE AND ALERT, BUT WAS UNSURE OF WHERE HE WAS. PATIENT IS 2+ASSIST FOR TRANSITIONING. PATIENT IS NON-MONITORED, AND DENIES ANY PAIN OR DISCOMFORT AT THIS TIME. PATIENT DENIES ANY SOB ON RA. REORIENTED PATIENT TO THE CALL LIGHT AND ROOM, CALL LIGHT IS WITHIN REACH. PATIENT HAD NO FURTHER REQUESTS AT THIS TIME. SEE ASSESSMENT.
[2017-07-27 07:44] LABS: BASO % 0.3 % (0.0-1.0); EOS # 0.1 10*3/uL (0.0-0.4); EOS % 0.8 % (1.0-4.0); HEMATOCRIT 32.4 % (42.0-52.0); HEMOGLOBIN 11.1 g/dl (14.0-18.0); LYMPH % 14.9 % (27.0-41.0); MEAN CELL VOLUME 95.6 fl (80.0-94.0); MEAN CORPUSCULAR HGB 32.7 pg (27.0-31.0); MEAN CORPUSCULAR HGB CONC 34.3 g/dl (33.0-37.0); MEAN PLATELET VOLUME 9.5 fl (9.6-12.3); MONO # 1.1 10*3/uL (0.1-1.0); MONO % 16.4 % (3.0-9.0); NEUT # 4.3 10*3/uL (2.3-7.9); NEUT % 67.1 % (47.0-73.0); PLATELET COUNT AUTOMATED 142 10*3/uL (130-400); RED BLOOD COUNT 3.39 10*6/uL (4.50-5.90); RED CELL DISTRI WIDTH 11.9 % (0-14.5); WHITE BLOOD COUNT 6.5 10*3/uL (4.8-10.8)
[2017-07-27 08:00] VITALS: BP 172/70
[2017-07-27 08:00] LABS: BUN 16 mg/dl (7-24); CHLORIDE 100 mmol/L (98-107); CREATININE 1.08 mg/dL (0.70-1.30); POTASSIUM 3.9 mmol/L (3.5-5.1); SODIUM 138 mmol/L (136-145)
--- NOTE | 2017-07-27 08:30 | NUR ---
PUBLISHER ASSISTANT VS. PT IS CONFUSED. DC TIRE FIXER WILL TALK TO FAMILY ABOUT PLACEMENT.
--- NOTE | 2017-07-27 09:01 | NUR ---
PHYSICAL THERAPY PAtient evaluated on 5, full evaluation to follow. Continue with PT as per plan of care with fall, max (A) x 2 and bed alarm precautions. History of aggressiveness and combativeness, polite and no difficulties during this PT evaluation. Will require SNF for impaired mobility. PAtient is high complexity via chart review, tests and evaluation: 00460. Thank you for this referral. Marielos Siu,PT
[2017-07-27 12:00] VITALS: BP 167/64
--- NOTE | 2017-07-27 14:30 | NUR ---
PHYSICAL THERAPY Patient was supine in bed upon therapist arrival this am and declined gait request, stating he didn't feel like standing this morning. After brief discussion and a little encouragemnt, patient agreed to and completed sup to sit transfer EOB, MAX A and able to maintain upright posture, CGA x 1. Patient performed B LE therex, all planes x 10 reps each, requiring several v/c's to complete task. Patient then returned to supine in bed and remained with call light, telephone, tray table and bed alarm activated for safety. Will continue per POC to improve functional mobility with total treatment time 13 minutes. Phan Rowe, MOHS SURGEON/GENERAL DERMATOLOGIST
[2017-07-27 16:00] VITALS: BP 143/60
[2017-07-27 20:00] VITALS: BP 157/62
[2017-07-28] VITALS: BP 147/55
[2017-07-28 06:49] LABS: BUN 21 mg/dl (7-24); CHLORIDE 98 mmol/L (98-107); POTASSIUM 3.8 mmol/L (3.5-5.1); SODIUM 135 mmol/L (136-145)
--- NOTE | 2017-07-28 07:35 | NUR ---
Patient referred to [facility], would require 3 night stay, waiting on acceptance.
[2017-07-28 08:00] VITALS: BP 158/64
--- NOTE | 2017-07-28 11:17 | NUR ---
Patient accepted to [facility], can go when medically stable for discharge. Doesn't require 3 night stay since patient was snf there within the last 30 days, no precert required.
[2017-07-28 12:00] VITALS: BP 158/66
--- NOTE | 2017-07-28 13:06 | NUR ---
PHYSICAL THERAPY Khoa seen this PM 1:1 for his therapy gait, present. Pt with yahaira. With verbal cueing for everything. Transfer supine/sit MOD A X 1, sitting balance CGA X 1, once up sit X 6 min. SIt/stand and standing balance with cueing MOD/MAX A X 1. Then gait 20' X 1, into Pt's bathroom MOD A X 1, with Khoa helping. Followed by gait back to bed another 20' X 1, MOD A X 2, with helping. Pt back supine in bed call kristen going to feed. ALLI ROSS BEADING MACHINE OPERATOR.
[2017-07-28 16:00] VITALS: BP 160/56
--- NOTE | 2017-07-28 16:00 | NUR ---
PT RESTING IN BED, ORIENTED TO SELF. PT DENIES ANY COMPLAINTS. CALL LIGHT WITHIN REACH, BED ALARM ON.
[2017-07-28 20:00] VITALS: BP 148/54
[2017-07-29] VITALS: BP 162/54
--- NOTE | 2017-07-29 02:27 | NUR ---
RESTING IN BED WITH EYES CLOSED. AROUSES TO VERBAL STIMULI. REFUSED TO TURN ON BACK OR RIGHT SIDE. DENIES COMPLAINTS OF PAIN OR DISCOMFORT. WILL CONTINUE TO MONITOR. CALL LIGHT IN REACH.
[2017-07-29 06:34] LABS: BUN 19 mg/dl (7-24); CHLORIDE 100 mmol/L (98-107); POTASSIUM 3.7 mmol/L (3.5-5.1); SODIUM 140 mmol/L (136-145)
[2017-07-29 08:00] VITALS: BP 150/68
[2017-07-29 12:00] VITALS: BP 150/66
[2017-07-29 16:00] VITALS: BP 153/59; BP 157/48
[2017-07-29 20:00] VITALS: BP 106/69
[2017-07-30] VITALS: BP 147/58
--- NOTE | 2017-07-30 00:45 | NUR ---
PATIENT RESTING IN BED WITH EYES CLOSED. NO SIGNS OR SYMPTOMS OF DISTRESS NOTED. AROUSES TO VERBAL STIMULI. WILL CONTINUE TO MONITOR. CALL LIGHT IN REACH.
[2017-07-30 08:00] VITALS: BP 160/60
--- NOTE | 2017-07-30 08:15 | NUR ---
SLEEPING, AROUSES EASILY. CONFUSED WITH LITTLE SUCCESS IN ATTEMPTING TO REORIENT. EASY RESPIRATIONS WITH SKIN W/D. BEDALARM FOR PT SAFETY, SEE SHIFT ASSESSMENT.
[2017-07-30 12:00] VITALS: BP 146/44
--- NOTE | 2017-07-30 12:38 | NUR ---
RESTING WITH AT BEDSIDE. REPOSITIONED FOR COMFORT & TO RELIEVE PRESSURE AREAS.
[2017-07-30 16:00] VITALS: BP 135/52
--- NOTE | 2017-07-30 16:08 | NUR ---
OOB TO CHAIR, BODY ALARM IN USE FOR PT SAFETY. CALL LIGHT SYSTEM WITHIN REACH.
--- NOTE | 2017-07-30 17:16 | NUR ---
PTS NATI NOTIFIED 0F DISCHARGE TO [facility] THIS EVENING. STATES SHE WILL SEE AT [facility] TOMORROW.
--- NOTE | 2017-07-30 17:20 | NUR ---
REPORT CALLED TO JAYDEN AT [facility].
--- NOTE | 2017-07-30 19:05 | NUR ---
Discharge instructions reviewed with staff at [facility], receptive and verbalizes understanding. Written instructions given in nsg home pkt. GREGG HANSEN
--- NOTE | 2017-07-31 08:18 | NUR ---
PHYSICAL THERAPY CO-SIGN I approve of the Phyical Therapy notes written above. ANGLE BLOCK PT
== END 2017-07-30 19:05 | disposition other institution (70) | DRG 56 ==
LOC: ED 10:46 → EDHOLD 12:36 → 5E 12:36
PROVIDERS: Nurse Practitioner Family; ADMIT Internal Medicine
DX: G30.1 Alzheimer's disease with late onset (principal); G93.41 Metabolic encephalopathy; D63.8 Anemia in other chronic diseases classified elsewhere; E11.9 Type 2 diabetes mellitus without complications; E03.9 Hypothyroidism, unspecified; E78.2 Mixed hyperlipidemia; F02.80 Dementia in other diseases classified elsewhere, unspecified severity, without behavioral disturbance, psychotic disturbance, mood disturbance, and anxiety; Z66 Do not resuscitate; R62.7 Adult failure to thrive; Z51.5 Encounter for palliative care; I10 Essential (primary) hypertension; I25.10 Atherosclerotic heart disease of native coronary artery without angina pectoris; Z79.899 Other long term (current) drug therapy; Z90.49 Acquired absence of other specified parts of digestive tract; Z83.3 Family history of diabetes mellitus; Z82.5 Family history of asthma and other chronic lower respiratory diseases

== ENCOUNTER → 2017-09-14 | Outpatient (CLI) | payer MEDICARE, OTHER | END | disposition home or self-care (01) | LOC: CT 09:42 | DX: N28.1 Cyst of kidney, acquired (principal); I70.90 Unspecified atherosclerosis; I25.10 Atherosclerotic heart disease of native coronary artery without angina pectoris; J44.9 Chronic obstructive pulmonary disease, unspecified; R62.7 Adult failure to thrive; R44.3 Hallucinations, unspecified; D51.9 Vitamin B12 deficiency anemia, unspecified; Z90.49 Acquired absence of other specified parts of digestive tract ==

== ENCOUNTER 2017-11-09 02:37 | Emergency (ER) | payer MEDICARE, OTHER ==
[~2017-11-09] VITALS: Wt 85.7 kg
[2017-11-09 02:50] LABS: BILIRUBIN NEGATIVE (NEGATIVE); BLOOD 1+ (NEGATIVE); CLARITY CLEAR (CLEAR); COLOR YELLOW (YELLOW); GLUCOSE 3+ (NEGATIVE); KETONE NEGATIVE (NEGATIVE); LEUKO ESTERASE NEGATIVE (NEGATIVE); NITRITE NEGATIVE (NEGATIVE); PH 6.5 (5.0-9.0); UROBILINOGEN 0.2 E.U./dl (0.2-1.0)
[2017-11-09 03:22] LABS: RBC 16-20 rbc/hpf (0-2)
[2017-11-09 03:52] LABS: BASO % 0.1 % (0.0-1.0); HEMATOCRIT 36.5 % (42.0-52.0); HEMOGLOBIN 12.2 g/dl (14.0-18.0); LYMPH # 0.5 10*3/uL (1.3-4.4); LYMPH % 5.3 % (27.0-41.0); MEAN CELL VOLUME 95.5 fl (80.0-94.0); MEAN CORPUSCULAR HGB 31.9 pg (27.0-31.0); MEAN CORPUSCULAR HGB CONC 33.4 g/dl (33.0-37.0); MEAN PLATELET VOLUME 9.8 fl (9.6-12.3); MONO # 0.5 10*3/uL (0.1-1.0); MONO % 5.5 % (3.0-9.0); NEUT % 88.7 % (47.0-73.0); PLATELET COUNT AUTOMATED 96 10*3/uL (130-400); RED BLOOD COUNT 3.82 10*6/uL (4.50-5.90); RED CELL DISTRI WIDTH 12.8 % (0-14.5); WHITE BLOOD COUNT 9.1 10*3/uL (4.8-10.8)
[2017-11-09 04:01] LABS: INTERNATIONAL NORM RATIO 0.9 (2.0-3.5)
[2017-11-09 04:06] LABS: ALBUMIN 3.7 gm/dl (3.1-4.5); ALKALINE PHOSPHATASE 89 U/L (45-117); BUN 29 mg/dl (7-24); CHLORIDE 99 mmol/L (98-107); CREATININE 1.19 mg/dL (0.70-1.30); LIPASE 170 U/L (73-393); POTASSIUM 4.4 mmol/L (3.5-5.1); SGOT/AST 14 IU/L (3-35); SGPT/ALT 16 U/L (12-78); SODIUM 140 mmol/L (136-145); TOTAL PROTEIN 7.3 gm/dL (6.4-8.2)
[2017-11-09] MEDS ORDERED: PROTONIX40 MG PO ×2 (05:14→05:42)
[2017-11-09] MEDS ORDERED: ZOFRAN ODT4 MG SL ×2 (05:44→05:49)
== END 2017-11-09 06:25 | disposition other institution (70) ==
LOC: ED 02:37
PROVIDERS: Emergency Medicine Emergency Medical Services
DX: K59.00 Constipation, unspecified (principal); R11.2 Nausea with vomiting, unspecified; F02.80 Dementia in other diseases classified elsewhere, unspecified severity, without behavioral disturbance, psychotic disturbance, mood disturbance, and anxiety; I10 Essential (primary) hypertension; I25.10 Atherosclerotic heart disease of native coronary artery without angina pectoris; E78.00 Pure hypercholesterolemia, unspecified; E03.9 Hypothyroidism, unspecified; G30.9 Alzheimer's disease, unspecified; Z79.899 Other long term (current) drug therapy

== ENCOUNTER 2017-12-30 00:49 | Emergency (ER) | payer MEDICARE, OTHER ==
[~2017-12-30] VITALS: Ht 182.8 cm; Wt 85.3 kg
[~2017-12-30 00:49] MED LIST changes: +PROTONIX40 MG PO; +ZOFRAN ODT4 MG SL
[2017-12-30 01:15] LABS: BASO % 0.2 % (0.0-1.0); EOS % 0.7 % (1.0-4.0); HEMATOCRIT 35.4 % (42.0-52.0); HEMOGLOBIN 12.1 g/dl (14.0-18.0); LYMPH # 0.7 10*3/uL (1.3-4.4); LYMPH % 15.8 % (27.0-41.0); MEAN CELL VOLUME 94.1 fl (80.0-94.0); MEAN CORPUSCULAR HGB 32.2 pg (27.0-31.0); MEAN CORPUSCULAR HGB CONC 34.2 g/dl (33.0-37.0); MONO # 0.4 10*3/uL (0.1-1.0); MONO % 9.7 % (3.0-9.0); NEUT % 73.1 % (47.0-73.0); PLATELET COUNT AUTOMATED 99 10*3/uL (130-400); RED BLOOD COUNT 3.76 10*6/uL (4.50-5.90); RED CELL DISTRI WIDTH 12.3 % (0-14.5); WHITE BLOOD COUNT 4.1 10*3/uL (4.8-10.8)
[2017-12-30 01:26] LABS: ACT PARTIAL THROMBO TIME 19.7 SECONDS (20.8-31.5)
[2017-12-30] MEDS ORDERED: DEPAKOTE ER250 MG PO (01:29)
[2017-12-30] MEDS ORDERED: CORTISONE28 GM T (01:30)
[2017-12-30] MEDS ORDERED: GLYCOLAX119 GM PO (01:31)
[2017-12-30] MEDS ORDERED: OMEPRAZOLE20 M2 PO (01:31)
[2017-12-30] MEDS ORDERED: COLACE100 MG PO (01:31)
[2017-12-30 01:32] LABS: ALBUMIN 3.4 gm/dl (3.1-4.5); ALKALINE PHOSPHATASE 56 U/L (45-117); BUN 26 mg/dl (7-24); CHLORIDE 103 mmol/L (98-107); CREATININE 1.15 mg/dL (0.70-1.30); SGOT/AST 18 IU/L (3-35); SGPT/ALT 22 U/L (12-78); SODIUM 143 mmol/L (136-145); TOTAL PROTEIN 6.5 gm/dL (6.4-8.2)
[2017-12-30] MEDS ORDERED: RIVASTIGMINE TAR6 M1 PO (01:32)
[2017-12-30 01:33] LABS: TROPONIN I 0.015 ng/ml (<0.045)
[2017-12-30] MEDS ORDERED: PROSCAR5 M1 PO (01:33)
[2017-12-30] MEDS ORDERED: PERIDEX118 ML MM (01:33)
[2017-12-30] MEDS ORDERED: B-121000 MCG PO (01:34)
[2017-12-30] MEDS ORDERED: XALATAN 0.005%2.5 ML INTRAOC (01:34)
[2017-12-30] MEDS ORDERED: LEVOTHYROXINE50 MCG PO (01:34)
[2017-12-30] MEDS ORDERED: VITAMIN C500 M8 PO (01:35)
[2017-12-30] MEDS ORDERED: TAB-A-VITE1 EACH PO (01:36)
[2017-12-30] MEDS ORDERED: VITAMIN D31000 UNI1 PO (01:37)
[2017-12-30] MEDS ORDERED: ZESTRIL20 MG PO (01:37)
[2017-12-30] MEDS ORDERED: ARTIFICIAL TEAR1511 OP (01:38)
[2017-12-30] MEDS ORDERED: LOPRESSOR50 M1 PO (01:38)
[2017-12-30] MEDS ORDERED: NAMENDA10 MG PO (01:39)
[2017-12-30] MEDS ORDERED: NORVASC10 MG PO (01:39)
[2017-12-30] MEDS ORDERED: LEVEMIR FL100 UNIT/1 SQ (01:40)
[2017-12-30] MEDS ORDERED: ASPIR LOW81 MG PO (01:40)
[2017-12-30 02:26] LABS: BILIRUBIN NEGATIVE (NEGATIVE); BLOOD 3+ (NEGATIVE); CLARITY CLEAR (CLEAR); COLOR YELLOW (YELLOW); GLUCOSE 3+ (NEGATIVE); KETONE NEGATIVE (NEGATIVE); LEUKO ESTERASE NEGATIVE (NEGATIVE); NITRITE NEGATIVE (NEGATIVE); PH 6.5 (5.0-9.0); SPECIFIC GRAVITY 1.015 (1.005-1.030); UROBILINOGEN 0.2 E.U./dl (0.2-1.0)
[2017-12-30 02:33] LABS: RBC 41-50 rbc/hpf (0-2)
== END 2017-12-30 02:54 | disposition other institution (70) ==
LOC: ED 00:49
PROVIDERS: Student in an Organized Health Care Education/Training Program
DX: M54.2 Cervicalgia (principal); N17.0 Acute kidney failure with tubular necrosis; I25.10 Atherosclerotic heart disease of native coronary artery without angina pectoris; I10 Essential (primary) hypertension; F03.90 Unspecified dementia, unspecified severity, without behavioral disturbance, psychotic disturbance, mood disturbance, and anxiety; E11.65 Type 2 diabetes mellitus with hyperglycemia; E78.00 Pure hypercholesterolemia, unspecified; E03.9 Hypothyroidism, unspecified; Z90.49 Acquired absence of other specified parts of digestive tract; Z79.899 Other long term (current) drug therapy; Z79.82 Long term (current) use of aspirin; Z79.4 Long term (current) use of insulin; W13.3XXA Fall through floor, initial encounter; Y93.89 Activity, other specified; Y92.89 Other specified places as the place of occurrence of the external cause; Y99.8 Other external cause status

== ENCOUNTER 2018-01-18 11:25 | Inpatient (IN) | payer MEDICARE, OTHER ==
[~2018-01-18] VITALS: Ht 182.8 cm; Wt 81.4 kg
--- NOTE | ~2018-01-18 | DS ---
[place], [place] DISCHARGE SUMMARY NAME: OMID SMITH [facility] #: [id number] UNIT #: [id number] ROOM: 410 DOCTOR: ABAD JOHNSON MD BIRTHDATE: [birth year] DOS: 01/21/2018 DISCHARGE DIAGNOSES: 1. The patient with advanced adult failure to thrive and DNR-CCA code status. 2. Acute diarrhea, resolved. Clostridium difficile negative. 3. Urinary tract infection. 4. Altered mental status and delirium and metabolic encephalopathy. 5. Benign essential hypertension. 6. Acute kidney failure from dehydration. 7. Hypokalemia. 8. Late onset Alzheimer's type dementia. 9. Hypothyroidism. 10. Mixed hyperlipidemia. 11. Coronary artery disease of the [place] vessels. 12. Type 2 diabetes. HOSPITAL COURSE: 1. The patient advance adult failure to thrive, admitted to [facility] for [facility], presented with mental status change and was admitted by Dr. Opal Couch. The patient was brought into the hospital apparently when he was getting a shower. He was found to be staring away and not responding normally. In the ER, the patient's CT of the head was normal except for showing chronic small vessel disease. The patient was admitted with metabolic encephalopathy and considered to have urinary infection, which was treated with antibiotics and the patient's feeling all better now. He is awake, alert and comfortable. 2. The patient had diarrhea for which he was checked for C. diff toxin of the stools and diarrhea have resolved. The C. diff toxin studies were negative. 3. Acute over chronic kidney disease with some elevation of creatinine, apparently from dehydration from diarrhea and resolved with hydration with normal saline. 4. Hypokalemia resulting from diarrhea, treated with extra potassium supplements. 5. Coronary artery disease of the [place] vessels without chest pain. 6. Mixed hyperlipidemia, treated with diet. 7. Benign essential hypertension, treated with amlodipine. 8. Hypothyroidism, replaced with levothyroxine, which was continued. LABORATORY DATA: Blood cultures were negative. White cell count of 3800, hemoglobin 82,000 platelets. Normal serum electrolytes except for potassium of 3.4 for which the patient was given extra potassium supplements. Stool for C. diff colitis was negative. Chest x-ray without acute abnormality. DISCHARGE MANAGEMENT: Levothyroxine 50 mcg daily, rivastigmine 6 mg b.i.d., omeprazole 20 mg a day, memantine 10 mg b.i.d., metoprolol 50 mg daily, Depakote extended release 250 mg every 8 hours, aspirin 81 mg a day, amlodipine 10 mg daily, Augmentin 875 mg twice a day for a week. [place], [place] DISCHARGE SUMMARY NAME: OMID SMITH UNIT #: [id number] ROOM: 410 DOCTOR: ABAD JOHNSON MD BIRTHDATE: [birth year] ABAD JOHNSON MD CM:MURALI [id number] ABAD JOHNSON MD 01/21/182111 interface
--- NOTE | ~2018-01-18 | WRIGHTHP ---
[place], [place] PATIENT HISTORY AND PHYSICAL EXAM NAME: OMID SMITH [facility] #: [id number] UNIT #: [id number] ROOM: 410 DOCTOR: ALBINA ANNE MD BIRTHDATE: [birth year] DOS: 01/18/2018 HISTORY OF PRESENT ILLNESS: This patient is an 88-year-old, not known to me. The patient of Dr. De Guzman, who comes in with complaints of change in mental status. The patient apparently was taking a shower. As per the family member, he was staring away and would not respond and so they brought him to the Emergency Room where he was evaluated and CT of the head was negative except for chronic small vessel disease. The patient was admitted with metabolic encephalopathy and acute kidney injury. This morning, the patient is fairly awake and alert, not oriented to time, place or person, but pleasant and in no distress. He continues to have diarrhea. He has had about 3 bowel movements during the night, none morning. Denies having any abdominal pain, any nausea, any emesis. PAST MEDICAL HISTORY: Significant for: 1. Last hospitalization in 07/2017 with adult failure to thrive. At that time, [facility] was [facility] and [facility] was later [facility] from the [facility]. 2. Type 2 diabetes. 3. Coronary artery disease by history. 4. Benign hypertension. 5. Mixed hyperlipidemia. 6. Hypothyroidism. 7. Alzheimer's dementia, late onset. MEDICATIONS: He is currently on are vitamin C, amlodipine, aspirin, vitamin D, vitamin B12, Depakote, levothyroxine, lisinopril, Namenda, metoprolol, multivitamin, omeprazole, rivastigmine. SOCIAL HISTORY: Nonsmoker, does not use any alcohol. PHYSICAL EXAMINATION: GENERAL: He is awake and alert, not oriented to time, place or person. Pleasant. VITAL SIGNS: Graphic trend shows a pressure 129/56, pulse of 79, respirations 16, temperature 97.8. LUNGS: Diminished breath sounds, clear. HEART: Regular. ABDOMEN: Soft. EXTREMITIES: Without any edema. ASSESSMENT AND PLAN: 1. Diarrhea of unknown etiology. C. diff titers will be ordered. Lomotil has been started. He was on MiraLax, which has been discontinued. 2. Acute kidney injury, possibly from dehydration and acute tubular necrosis from meds. I will discontinue the lisinopril. Continue the other two antihypertensives and hydrate him well. 3. Benign hypertension, controlled. 4. Metabolic encephalopathy, combination of factors. Urine culture and blood cultures are ordered. IV Rocephin started for possibility of urinary tract [place], [place] PATIENT HISTORY AND PHYSICAL EXAM NAME: OMID SMITH UNIT #: [id number] ROOM: 410 DOCTOR: ALBINA ANNE MD BIRTHDATE: [birth year] infection. 5. Adult failure to thrive. PT/OT, Social service has been consulted. ALBINA ANNE MD CM:HISPHYS:PATIENT HISTORY AND PHYSICAL EXAMINATION [id number] ALBINA ANNE MD 01/19/18 0934 interface
--- NOTE | ~2018-01-18 | PR ---
[place], [place] PROGRESS NOTE NAME: OMID SMITH UNIT #: [id number] ROOM: 410 DOCTOR: ABAD JOHNSON MD BIRTHDATE: [birth year] DOS: 01/20/2018 SUBJECTIVE: The patient has generalized weakness and unable to communicate. OBJECTIVE: VITAL SIGNS: Blood pressure 136/55, heart rate of 71 beats per minute, breathing 18 times per minute, afebrile. GENERAL APPEARANCE: The patient is alert and oriented x 3, in no visible distress, except for generalized weakness and mental confusion. HEENT AND NECK: Exam within normal limits. CARDIOVASCULAR SYSTEM: Heart rate is regular in rate and rhythm. S1 and S2 normally audible. LUNGS: Clear to auscultation. ABDOMEN: Soft, nontender. No obvious organomegaly. Bowel sounds are present. EXTREMITIES: Without significant cyanosis or edema. IMPRESSION AND PLAN: 1. The patient has advanced adult failure to thrive, working with OT and PT. 2. Diarrhea with Clostridium difficile negative so far. 3. Signs of urinary tract infection, but urine cultures were negative. Blood cultures were negative. 4. Mental status change, apparently secondary to infection. Delirium expected improve with treatment with antibiotics. The patient is on IV Rocephin. The patient has metabolic encephalopathy. 5. Benign essential hypertension, with controlled blood pressures. 6. Acute kidney failure, improved with hydration. 7. Hypokalemia. I will treat with extra potassium supplements. ABAD JOHNSON MD CM:PNTRANS [id number] ABAD JOHNSON MD 01/20/18 2212 interface
[~2018-01-18 11:25] MED LIST changes: +ARTIFICIAL TEAR1511 OP; +ASPIR LOW81 MG PO; +B-121000 MCG PO; +COLACE100 MG PO; +CORTISONE28 GM T; +DEPAKOTE ER250 MG PO; +GLYCOLAX119 GM PO; +LEVEMIR FL100 UNIT/1 SQ; +LEVOTHYROXINE50 MCG PO; +NORVASC10 MG PO; +OMEPRAZOLE20 M2 PO; +PERIDEX118 ML MM; +PROSCAR5 M1 PO; +RIVASTIGMINE TAR6 M1 PO; +TAB-A-VITE1 EACH PO; +VITAMIN C500 M8 PO; +VITAMIN D31000 UNI1 PO; +XALATAN 0.005%2.5 ML INTRAOC; +ZESTRIL20 MG PO
[2018-01-18 11:26] VITALS: BP 110/54
[2018-01-18 12:05] LABS: BASO % 0.2 % (0.0-1.0); EOS % 0.6 % (1.0-4.0); HEMATOCRIT 38.9 % (42.0-52.0); HEMOGLOBIN 12.9 g/dl (14.0-18.0); LYMPH # 0.9 10*3/uL (1.3-4.4); LYMPH % 17.4 % (27.0-41.0); MEAN CELL VOLUME 97.3 fl (80.0-94.0); MEAN CORPUSCULAR HGB 32.3 pg (27.0-31.0); MEAN CORPUSCULAR HGB CONC 33.2 g/dl (33.0-37.0); MEAN PLATELET VOLUME 9.5 fl (9.6-12.3); MONO # 0.6 10*3/uL (0.1-1.0); MONO % 12.5 % (3.0-9.0); NEUT # 3.5 10*3/uL (2.3-7.9); NEUT % 68.5 % (47.0-73.0); PLATELET COUNT AUTOMATED 100 10*3/uL (130-400); RED CELL DISTRI WIDTH 12.9 % (0-14.5); WHITE BLOOD COUNT 5.1 10*3/uL (4.8-10.8)
[2018-01-18 12:15] LABS: ACT PARTIAL THROMBO TIME 20.7 SECONDS (20.8-31.5)
[2018-01-18 12:22] LABS: ALBUMIN 3.3 gm/dl (3.1-4.5); ALKALINE PHOSPHATASE 75 U/L (45-117); BUN 45 mg/dl (7-24); CHLORIDE 108 mmol/L (98-107); CREATININE 1.32 mg/dL (0.70-1.30); LIPASE 115 U/L (73-393); POTASSIUM 3.9 mmol/L (3.5-5.1); SGOT/AST 29 IU/L (3-35); SGPT/ALT 28 U/L (12-78); SODIUM 142 mmol/L (136-145); TOTAL PROTEIN 6.8 gm/dL (6.4-8.2)
[2018-01-18 12:32] LABS: TROPONIN I < 0.015 ng/ml (<0.045)
[2018-01-18 12:34] LABS: VALPROIC ACID (DEPAKENE) 76.5 ug/ml (50-100)
[2018-01-18 12:39] LABS: BILIRUBIN NEGATIVE (NEGATIVE); BLOOD 2+ (NEGATIVE); CLARITY CLOUDY (CLEAR); COLOR YELLOW (YELLOW); GLUCOSE NEGATIVE (NEGATIVE); KETONE NEGATIVE (NEGATIVE); LEUKO ESTERASE 2+ (NEGATIVE); NITRITE NEGATIVE (NEGATIVE); PH 5.5 (5.0-9.0); SPECIFIC GRAVITY 1.025 (1.005-1.030); UROBILINOGEN 0.2 E.U./dl (0.2-1.0)
[2018-01-18 13:01] LABS: RBC 21-30 rbc/hpf (0-2); WBC TNTC wbc/hpf (0-5)
[2018-01-18 13:02] LABS: BACTERIA 2+
[2018-01-18] MEDS ORDERED: RIVASTIGMINE TAR6 M1 PO (14:06)
[2018-01-18 14:07] VITALS: BP 106/60
[2018-01-18] MEDS ORDERED: TOUJEO SOL300 UNIT/1 SQ (14:07)
[2018-01-18 15:05] VITALS: BP 136/53
[2018-01-18 16:00] VITALS: BP 136/53
[2018-01-18 20:00] VITALS: BP 142/50
[2018-01-19] VITALS: BP 134/48
[2018-01-19 08:00] VITALS: BP 129/56
[2018-01-19 12:00] VITALS: BP 130/78
[2018-01-19 16:00] VITALS: BP 133/73
[2018-01-20 00:19] VITALS: BP 136/55
[2018-01-20 07:42] LABS: HEMATOCRIT 33.1 % (42.0-52.0); MEAN CELL VOLUME 95.1 fl (80.0-94.0); MEAN CORPUSCULAR HGB 31.6 pg (27.0-31.0); MEAN CORPUSCULAR HGB CONC 33.2 g/dl (33.0-37.0); MEAN PLATELET VOLUME 9.8 fl (9.6-12.3); PLATELET COUNT AUTOMATED 82 10*3/uL (130-400); RED BLOOD COUNT 3.48 10*6/uL (4.50-5.90); RED CELL DISTRI WIDTH 12.9 % (0-14.5); WHITE BLOOD COUNT 3.8 10*3/uL (4.8-10.8)
[2018-01-20 08:00] VITALS: BP 162/70
[2018-01-20 08:07] LABS: CHLORIDE 112 mmol/L (98-107); CREATININE 0.83 mg/dL (0.70-1.30); POTASSIUM 3.4 mmol/L (3.5-5.1); SODIUM 145 mmol/L (136-145)
[2018-01-20 08:10] LABS: ATYPICAL LYMPHS 3 % (0-0); BASOPHILS 1 % (0-1); PLATELET SUFFICIENCY LOW (NORMAL); TOTAL CELLS COUNTED 100 #CELLS
[2018-01-20 08:11] LABS: BUN 19 mg/dl (7-24)
[2018-01-20 12:00] VITALS: BP 108/81
[2018-01-20 16:00] VITALS: BP 148/63
[2018-01-21] VITALS: BP 144/68
[2018-01-21 08:00] VITALS: BP 155/64
[2018-01-21] MEDS ORDERED: AUGMENTIN 875-875 MG PO (14:55)
[2018-01-21 16:00] VITALS: BP 128/66
== END 2018-01-21 17:25 | disposition other institution (70) | DRG 682 ==
LOC: ED 11:25 → EDHOLD 14:34 → 4E 14:34
PROVIDERS: Emergency Medicine; Internal Medicine
DX: N17.0 Acute kidney failure with tubular necrosis (principal); G93.41 Metabolic encephalopathy; E11.22 Type 2 diabetes mellitus with diabetic chronic kidney disease; G30.1 Alzheimer's disease with late onset; F02.80 Dementia in other diseases classified elsewhere, unspecified severity, without behavioral disturbance, psychotic disturbance, mood disturbance, and anxiety; N39.0 Urinary tract infection, site not specified; Z66 Do not resuscitate; Z51.5 Encounter for palliative care; R62.7 Adult failure to thrive; E87.6 Hypokalemia; E03.9 Hypothyroidism, unspecified; E78.2 Mixed hyperlipidemia; I25.10 Atherosclerotic heart disease of native coronary artery without angina pectoris; I12.9 Hypertensive chronic kidney disease with stage 1 through stage 4 chronic kidney disease, or unspecified chronic kidney disease; Z79.82 Long term (current) use of aspirin; N18.9 Chronic kidney disease, unspecified; Z79.4 Long term (current) use of insulin; Z79.899 Other long term (current) drug therapy; Z90.49 Acquired absence of other specified parts of digestive tract; Z83.3 Family history of diabetes mellitus; Z83.6 Family history of other diseases of the respiratory system